=== PATIENT | male | born 1985 | race Caucasian/White ===

== ENCOUNTER 2016-10-12 14:00 | Emergency (ER) | payer OTHER ==
[~2016-10-12] VITALS: Ht 170.2 cm; Wt 68.2 kg
[2016-10-12 14:52] LABS: HEMATOCRIT 54.5 % (41-53); HEMOGLOBIN 17.9 g/dL (13.5-17.5); LYMPHOCYTES % (AUTO) 11.4 % (22.0-44.0); MEAN CORPUSCULAR HEMOGLOBIN 28.7 pg (26.0-34.0); MEAN CORPUSCULAR HGB CONC 32.8 G/dL (31.0-37.0); MEAN CORPUSCULAR VOLUME 88 fL (80-100); MONOCYTES # (AUTO) 1.2 K/uL (0.1-1.0); MONOCYTES % (AUTO) 13.5 % (2.0-9.0); NEUTROPHILS # (AUTO) 6.3 K/uL (1.8-7.7); NEUTROPHILS % (AUTO) 73.1 % (40.0-70.0); PLATELET COUNT (AUTO) 267 K/uL (150-450); RED BLOOD CELL COUNT(AUTO) 6.22 MIL/uL (4.50-5.90); RED CELL DISTRIBUTION WIDTH 13.7 % (11.5-14.5); WHITE BLOOD COUNT (AUTO) 8.6 K/uL (4.5-11.0)
[2016-10-12 15:24] LABS: ANION GAP 7 mmol/L (8-16); CALCIUM, TOTAL 9.9 mg/dL (8.8-10.5); CARBON DIOXIDE 31 mmol/L (22-29); CHLORIDE 100 mmol/L (98-107); CREATININE 1.15 mg/dL (0.60-1.30); GLOMERULAR FILTR. RATE CALC > 60 mL/min (>60); POTASSIUM 4.6 mmol/L (3.5-5.1); SODIUM SERUM 138 mmol/L (136-145); UREA NITROGEN, BLOOD 13 mg/dL (7-18)
[2016-10-12 15:31] LABS: ALANINE AMINOTRANSFERASE 42 U/L (12-78); ASPARTATE AMINOTRANSFERASE 29 U/L (15-37); BILIRUBIN,TOTAL 0.4 mg/dL (0.1-1.0); TOTAL PROTEIN, SERUM 8.7 g/dL (6.4-8.2)
[2016-10-12] MEDS ORDERED: SODIUM CHLORIDE 0.9% 1,000 ML IV ONE (16:30)
[2016-10-12 17:00] LABS: APPEARANCE,URINE CLEAR (CLEAR); GLUCOSE, URINE (UA) 500 mg/dL (NEGATIVE); KETONES,URINE NEGATIVE (NEGATIVE); LEUKOCYTE ESTERASE ,URINE NEGATIVE (NEGATIVE); OCCULT BLOOD,URINE NEGATIVE (NEGATIVE); PROTEIN,URINE NEGATIVE (NEGATIVE)
[2016-10-12 17:01] LABS: ADD UA MICROSCOPIC YES; RBC,URINE 0-2 /HPF (0-2)
[2016-10-12 17:02] LABS: WBC,URINE 0-2 /HPF (0-5)
[2016-10-12] MEDS ORDERED: SODIUM CHLORIDE 0.9% 100 ML ONE (17:43)
[2016-10-12] MEDS ORDERED: IOVERSOL 350 MG/ML 100 ML VIAL ONE (17:43)
[2016-10-12] MEDS ORDERED: KETOROLAC TROMETHAMINE 30 MG/ML VIAL IVP ONE (19:45)
[2016-10-12 19:56] VITALS: BP 159/89
== END 2016-10-12 19:57 | disposition home or self-care (01) ==
LOC: EMS 14:02
DX: R10.31 Right lower quadrant pain (principal); F17.210 Nicotine dependence, cigarettes, uncomplicated
CPT/HCPCS: 36415; 71260; 80053; 80307; 81001; 81003; 83690; 84484; 85025; 85379; 93005; 96361; 96374; 99285; J1885; J7030; J7050; Q9967

== ENCOUNTER 2017-03-25 13:16 | Emergency (ER) | payer OTHER ==
[~2017-03-25] VITALS: Ht 167.6 cm; Wt 71.5 kg
[2017-03-25] MEDS ORDERED: LISI10TA7 PO (13:27)
[2017-03-25] MEDS ORDERED: SODIUM CHLORIDE 0.9% 1,000 ML IV ONE (14:00)
[2017-03-25] MEDS ORDERED: LORazepam 2 MG/ML VIAL IVP ONE (14:00)
[2017-03-25 14:37] LABS: ANION GAP 5 mmol/L (8-16); CALCIUM, TOTAL 9.3 mg/dL (8.8-10.5); CARBON DIOXIDE 30 mmol/L (22-29); CHLORIDE 102 mmol/L (98-107); CREATININE 1.04 mg/dL (0.60-1.30); GLOMERULAR FILTR. RATE CALC > 60 mL/min (>60); POTASSIUM 3.1 mmol/L (3.5-5.1); SODIUM SERUM 137 mmol/L (136-145); UREA NITROGEN, BLOOD 14 mg/dL (7-18)
[2017-03-25 14:43] LABS: ALANINE AMINOTRANSFERASE 30 U/L (12-78); ALBUMIN 4.1 g/dL (3.4-5.0); ASPARTATE AMINOTRANSFERASE 18 U/L (15-37); BILIRUBIN,TOTAL 0.4 mg/dL (0.1-1.0); TOTAL PROTEIN, SERUM 7.7 g/dL (6.4-8.2)
[2017-03-25 14:46] LABS: BASOPHILS # (AUTO) 0.08 K/uL (0.00-0.20); BASOPHILS % (AUTO) 1.2 % (0.0-2.0); EOSINOPHILS # (AUTO) 0.03 K/uL (0.00-0.70); EOSINOPHILS % (AUTO) 0.45 % (1.0-6.0); HEMATOCRIT 45.6 % (41-53); HEMOGLOBIN 15.2 g/dL (13.5-17.5); LYMPHOCYTES # (AUTO) 1.6 K/uL (1.0-4.8); LYMPHOCYTES % (AUTO) 22.9 % (22.0-44.0); MEAN CORPUSCULAR HEMOGLOBIN 29.5 pg (26.0-34.0); MEAN CORPUSCULAR HGB CONC 33.2 G/dL (31.0-37.0); MEAN CORPUSCULAR VOLUME 89 fL (80-100); MONOCYTES # (AUTO) 0.7 K/uL (0.1-1.0); MONOCYTES % (AUTO) 9.9 % (2.0-9.0); NEUTROPHILS # (AUTO) 4.4 K/uL (1.8-7.7); NEUTROPHILS % (AUTO) 65.5 % (40.0-70.0); PLATELET COUNT (AUTO) 254 K/uL (150-450); RED BLOOD CELL COUNT(AUTO) 5.14 MIL/uL (4.50-5.90); RED CELL DISTRIBUTION WIDTH 13.2 % (11.5-14.5); WHITE BLOOD COUNT (AUTO) 6.8 K/uL (4.5-11.0)
[2017-03-25 16:47] VITALS: BP 123/78
== END 2017-03-25 17:20 | disposition home or self-care (01) ==
LOC: EMS 13:17
DX: F15.10 Other stimulant abuse, uncomplicated (principal); R00.0 Tachycardia, unspecified; F10.10 Alcohol abuse, uncomplicated; I10 Essential (primary) hypertension; F17.210 Nicotine dependence, cigarettes, uncomplicated; F12.90 Cannabis use, unspecified, uncomplicated; Y90.9 Presence of alcohol in blood, level not specified
CPT/HCPCS: 36415; 71010; 80053; 84484; 85025; 93005; 96361; 96374; 99285; J2060; J7030

== ENCOUNTER 2017-05-13 17:46 | Emergency (ER) | payer OTHER ==
[~2017-05-13] VITALS: Ht 162.6 cm; Wt 67.0 kg
[~2017-05-13 17:46] MED LIST: LISI10TA7 PO
[2017-05-13] MEDS ORDERED: SODIUM CHLORIDE 0.9% 1,000 ML IV ONE (20:15)
[2017-05-13] MEDS ORDERED: LORazepam 1 MG TABLET PO ONE (20:15)
[2017-05-13 20:16] LABS: BASOPHILS % (AUTO) 0.4 % (0.0-2.0); EOSINOPHILS % (AUTO) 0.7 % (1.0-6.0); HEMATOCRIT 50.3 % (41-53); HEMOGLOBIN 16.9 g/dL (13.5-17.5); LYMPHOCYTES # (AUTO) 2.7 K/uL (1.0-4.8); LYMPHOCYTES % (AUTO) 26.7 % (22.0-44.0); MEAN CORPUSCULAR HEMOGLOBIN 29.6 pg (26.0-34.0); MEAN CORPUSCULAR HGB CONC 33.7 G/dL (31.0-37.0); MEAN CORPUSCULAR VOLUME 88 fL (80-100); MONOCYTES # (AUTO) 1.3 K/uL (0.1-1.0); MONOCYTES % (AUTO) 12.7 % (2.0-9.0); NEUTROPHILS % (AUTO) 59.5 % (40.0-70.0); PLATELET COUNT (AUTO) 301 K/uL (150-450); RED BLOOD CELL COUNT(AUTO) 5.73 MIL/uL (4.50-5.90); WHITE BLOOD COUNT (AUTO) 10.1 K/uL (4.5-11.0)
[2017-05-13 21:28] LABS: CALCIUM, TOTAL 9.7 mg/dL (8.8-10.5); CREATININE 1.44 mg/dL (0.60-1.30); POTASSIUM 4.5 mmol/L (3.5-5.1)
[2017-05-13 21:36] LABS: ALBUMIN 4.7 g/dL (3.4-5.0); BILIRUBIN,TOTAL 0.7 mg/dL (0.1-1.0); TOTAL PROTEIN, SERUM 8.9 g/dL (6.4-8.2)
[2017-05-13 21:46] VITALS: BP 141/97
== END 2017-05-13 21:54 | disposition home or self-care (01) ==
LOC: EMS 17:47
DX: F15.10 Other stimulant abuse, uncomplicated (principal); F32.9 Major depressive disorder, single episode, unspecified; I10 Essential (primary) hypertension; F17.210 Nicotine dependence, cigarettes, uncomplicated; F12.90 Cannabis use, unspecified, uncomplicated
CPT/HCPCS: 36415; 80053; 80307; 84484; 85025; 93005; 99285; 99406; G0480; J7030

== ENCOUNTER 2017-05-25 01:38 | Emergency (ER) | payer OTHER ==
[~2017-05-25] VITALS: Ht 170.2 cm; Wt 68.0 kg
[2017-05-25] MEDS ORDERED: FURO20TA4 PO (01:49)
[2017-05-25] MEDS ORDERED: CARV3.1231 PO (01:49)
[2017-05-25] MEDS ORDERED: POTA8TAB4 PO (01:49)
[2017-05-25] MEDS ORDERED: LISI-618 PO (01:49)
[2017-05-25] MEDS ORDERED: SODIUM CHLORIDE 0.9% 2,000 ML IV ONE (02:00)
[2017-05-25 02:30] LABS: BASOPHILS # (AUTO) 0.01 K/uL (0.00-0.20); BASOPHILS % (AUTO) 0.1 % (0.0-2.0); EOSINOPHILS # (AUTO) 0.02 K/uL (0.00-0.70); EOSINOPHILS % (AUTO) 0.14 % (1.0-6.0); HEMATOCRIT 46.8 % (41-53); HEMOGLOBIN 15.7 g/dL (13.5-17.5); LYMPHOCYTES # (AUTO) 1.5 K/uL (1.0-4.8); LYMPHOCYTES % (AUTO) 12.6 % (22.0-44.0); MEAN CORPUSCULAR HEMOGLOBIN 29.5 pg (26.0-34.0); MEAN CORPUSCULAR HGB CONC 33.6 G/dL (31.0-37.0); MEAN CORPUSCULAR VOLUME 88 fL (80-100); MONOCYTES # (AUTO) 0.7 K/uL (0.1-1.0); MONOCYTES % (AUTO) 5.6 % (2.0-9.0); NEUTROPHILS # (AUTO) 9.9 K/uL (1.8-7.7); NEUTROPHILS % (AUTO) 81.5 % (40.0-70.0); PLATELET COUNT (AUTO) 293 K/uL (150-450); RED BLOOD CELL COUNT(AUTO) 5.32 MIL/uL (4.50-5.90); RED CELL DISTRIBUTION WIDTH 13.8 % (11.5-14.5); WHITE BLOOD COUNT (AUTO) 12.2 K/uL (4.5-11.0)
[2017-05-25 02:47] LABS: ANION GAP 6 mmol/L (8-16); CALCIUM, TOTAL 9.3 mg/dL (8.8-10.5); CARBON DIOXIDE 29 mmol/L (22-29); CHLORIDE 104 mmol/L (98-107); CREATININE 1.18 mg/dL (0.60-1.30); GLOMERULAR FILTR. RATE CALC > 60 mL/min (>60); POTASSIUM 4.8 mmol/L (3.5-5.1); SODIUM SERUM 139 mmol/L (136-145); UREA NITROGEN, BLOOD 13 mg/dL (7-18)
[2017-05-25 02:50] LABS: ALANINE AMINOTRANSFERASE 45 U/L (12-78); ALBUMIN 4.3 g/dL (3.4-5.0); ASPARTATE AMINOTRANSFERASE 22 U/L (15-37); BILIRUBIN,TOTAL 0.4 mg/dL (0.1-1.0); TOTAL PROTEIN, SERUM 8.3 g/dL (6.4-8.2)
[2017-05-25] MEDS ORDERED: LORazepam 2 MG TABLET PO ONE (04:00)
[2017-05-25 04:08] VITALS: BP 145/99
== END 2017-05-25 04:18 | disposition home or self-care (01) ==
LOC: EMS 01:39
DX: R07.89 Other chest pain (principal); F15.10 Other stimulant abuse, uncomplicated; I10 Essential (primary) hypertension; F17.210 Nicotine dependence, cigarettes, uncomplicated; F12.90 Cannabis use, unspecified, uncomplicated; F19.90 Other psychoactive substance use, unspecified, uncomplicated
CPT/HCPCS: 36415; 71010; 80053; 84484; 85025; 93005; 96360; 96361; 99285; 99406; G0480; J7030

== ENCOUNTER 2018-02-12 23:05 | Emergency (ER) | payer OTHER ==
[~2018-02-12] VITALS: Ht 162.6 cm; Wt 68.2 kg
[~2018-02-12 23:05] MED LIST changes: +CARV3.1231 PO; +FURO20TA4 PO; +LISI-618 PO; +POTA8TAB4 PO
[2018-02-12] MEDS ORDERED: LORazepam 2 MG/ML VIAL IM ONE (23:45)
[2018-02-13] MEDS ORDERED: PERTUSS(ACELL),DIPH,TET VAC/PF 0.5 ML VIAL IM ONE (00:30)
[2018-02-13] MEDS ORDERED: MUPIROCIN CALCIUM 2% 22 GM OINTMENT TP ONE (00:30)
[2018-02-13 01:00] VITALS: BP 146/86
== END 2018-02-13 01:15 | disposition home or self-care (01) ==
LOC: EMS 23:06
DX: S21.131A Puncture wound without foreign body of right front wall of thorax without penetration into thoracic cavity, initial encounter (principal); R00.0 Tachycardia, unspecified; I10 Essential (primary) hypertension; F12.90 Cannabis use, unspecified, uncomplicated; F17.210 Nicotine dependence, cigarettes, uncomplicated; Z02.89 Encounter for other administrative examinations; Y35.891A Legal intervention involving other specified means, law enforcement official injured, initial encounter; Y93.89 Activity, other specified; Y92.89 Other specified places as the place of occurrence of the external cause; Y99.8 Other external cause status
CPT/HCPCS: 90471; 90715; 93005; 96372; 99285; J2060

== ENCOUNTER 2019-03-31 01:23 | Inpatient (IN) | payer MEDICAID, OTHER ==
[~2019-03-31] VITALS: Ht 167.6 cm; Wt 65.3 kg
[~2019-03-31 01:23] MED LIST changes: -FURO20TA4 PO; -LISI10TA7 PO
[2019-03-31 01:47] LABS: EOSINOPHILS % (AUTO) 1.3 % (1.0-6.0); HEMATOCRIT 42.1 % (41-53); HEMOGLOBIN 13.6 g/dL (13.5-17.5); LYMPHOCYTES # (AUTO) 1.7 K/uL (1.0-4.8); LYMPHOCYTES % (AUTO) 27.6 % (22.0-44.0); MEAN CORPUSCULAR HEMOGLOBIN 28.2 pg (26.0-34.0); MEAN CORPUSCULAR HGB CONC 32.2 G/dL (31.0-37.0); MEAN CORPUSCULAR VOLUME 88 fL (80-100); MONOCYTES # (AUTO) 0.7 K/uL (0.1-1.0); MONOCYTES % (AUTO) 10.6 % (2.0-9.0); NEUTROPHILS # (AUTO) 3.7 K/uL (1.8-7.7); NEUTROPHILS % (AUTO) 59.5 % (40.0-70.0); PLATELET COUNT (AUTO) 294 K/uL (150-450); RED BLOOD CELL COUNT(AUTO) 4.81 MIL/uL (4.50-5.90); RED CELL DISTRIBUTION WIDTH 13.7 % (11.5-14.5)
[2019-03-31 01:55] LABS: ANION GAP 6 mmol/L (8-16); CALCIUM, TOTAL 8.9 mg/dL (8.8-10.5); CARBON DIOXIDE 29 mmol/L (22-29); CHLORIDE 107 mmol/L (98-107); CREATININE 0.96 mg/dL (0.60-1.30); GLOMERULAR FILTR. RATE CALC > 60 mL/min (>60); GLUCOSE,RANDOM 102 mg/dL (70-110); POTASSIUM 3.6 mmol/L (3.5-5.1); SODIUM SERUM 142 mmol/L (136-145); UREA NITROGEN, BLOOD 13 mg/dL (7-18)
[2019-03-31] MEDS ORDERED: CARVEDILOL 3.125 MG TABLET PO ONE (02:00)
[2019-03-31 02:01] LABS: ALANINE AMINOTRANSFERASE 29 U/L (12-78); ALBUMIN 3.5 g/dL (3.4-5.0); ALKALINE PHOSPHATASE 54 U/L (46-116); ASPARTATE AMINOTRANSFERASE 22 U/L (15-37); BILIRUBIN,TOTAL 0.5 mg/dL (0.1-1.0); TOTAL PROTEIN, SERUM 7.4 g/dL (6.4-8.2)
[2019-03-31 03:02] LABS: AMPHET/METH SCREEN,URINE POSITIVE (NEGATIVE); BARBITURATE SCREEN, URINE NEGATIVE (NEGATIVE); BENZODIAZEPINES SCREEN,URINE NEGATIVE (NEGATIVE); CANNABINOID SCREEN,URINE NEGATIVE (NEGATIVE); COCAINE SCREEN,URINE NEGATIVE (NEGATIVE); METHADONE SCREEN, URINE NEGATIVE (NEGATIVE); OPIATE SCREEN,URINE NEGATIVE (NEGATIVE)
[2019-03-31 03:05] LABS: PHENCYCLIDINE SCREEN,URINE NEGATIVE (NEGATIVE)
[2019-03-31] MEDS ORDERED: HALOPERIDOL 5 MG TABLET PO PRN (09:30)
[2019-03-31] MEDS ORDERED: ZOLPIDEM TARTRATE 10 MG TABLET PO PRN (09:30)
[2019-03-31] MEDS ORDERED: ONDANSETRON HCL 4 MG TABLET PO PRN (12:30)
[2019-03-31] MEDS ORDERED: IBUPROFEN 400 MG TABLET PO PRN (12:30)
[2019-03-31] MEDS ORDERED: CloNIDine HCL 0.1 MG TABLET PO PRN (12:30)
[2019-03-31] MEDS ORDERED: NICOTINE 14 MG/24 HOUR PATCH TD PRN (12:30)
[2019-03-31] MEDS ORDERED: MAGNESIUM HYDROXIDE SUSPENSION 30 ML UDCUP PO PRN (12:30)
[2019-03-31] MEDS ORDERED: ALBUTEROL SULFATE HFA 90 MCG/PUFF 8 GM INHALER IH PRN (12:30)
[2019-03-31] MEDS ORDERED: GuaiFENesin/D-METHORPHAN [SUGAR-FREE] 200-20MG/10 ML SYRUP UDCUP PO PRN (12:30)
[2019-03-31] MEDS ORDERED: DOCUSATE SODIUM 100 MG CAPSULE PO PRN (12:30)
[2019-03-31] MEDS ORDERED: PETROLATUM,WHITE 28 GM JELLY TP PRN (12:30)
[2019-03-31] MEDS ORDERED: ACETAMINOPHEN 325 MG TABLET PO PRN (12:30)
[2019-03-31] MEDS ORDERED: MAG HYDROX/AL HYDROX/SIMETH ES 30 ML SUSPENSION UDCUP PO PRN (12:30)
[2019-03-31] MEDS ORDERED: LOPERAMIDE HCL 2 MG CAPSULE PO PRN (12:30)
[2019-03-31] MEDS: LORazepam 2 MG TABLET PO PRN (13:44)
[2019-03-31 14:47] VITALS: BP 178/104
[2019-03-31 16:00] VITALS: BP 116/72
[2019-03-31] MEDS: CARVEDILOL 3.125 MG TABLET PO SCH (17:00)
[2019-04-01 05:41] VITALS: BP 126/88
[2019-04-01 08:00] VITALS: BP 140/90
[2019-04-01] MEDS: LISINOPRIL 20 MG TABLET PO SCH (08:30)
[2019-04-01] MEDS: CARVEDILOL 3.125 MG TABLET PO SCH ×2 (08:30→16:46)
[2019-04-01 09:09] LABS: CHOL/HDL RATIO 1.9 (4.2-7.3); FREE T4 (FREE THYROXINE) 1.11 ng/dL (0.76-1.46); THYROID STIMULATING HORMONE 0.67 uIU/mL (0.36-3.74)
[2019-04-01 16:34] VITALS: BP 139/88
[2019-04-01] MEDS: OLANZapine 5 MG TABLET PO SCH (16:46)
[2019-04-01] MEDS: LORazepam 2 MG TABLET PO PRN (16:46)
[2019-04-02 06:46] VITALS: BP 132/79
[2019-04-02] MEDS: LISINOPRIL 20 MG TABLET PO SCH (08:45)
[2019-04-02] MEDS: OLANZapine 5 MG TABLET PO SCH ×2 (08:45→16:49)
[2019-04-02] MEDS: CARVEDILOL 3.125 MG TABLET PO SCH ×2 (08:45→16:49)
[2019-04-02 09:00] VITALS: BP 139/87
[2019-04-02 16:12] VITALS: BP 127/86
[2019-04-02] MEDS: LORazepam 2 MG TABLET PO PRN (16:50)
[2019-04-03 06:05] VITALS: BP 122/78
[2019-04-03 08:33] VITALS: BP 113/70
[2019-04-03] MEDS: LISINOPRIL 20 MG TABLET PO SCH (09:02)
[2019-04-03] MEDS: OLANZapine 5 MG TABLET PO SCH ×2 (09:02→16:38)
[2019-04-03] MEDS: CARVEDILOL 3.125 MG TABLET PO SCH ×2 (09:02→16:38)
[2019-04-03 16:19] VITALS: BP 140/89
[2019-04-04 07:14] VITALS: BP 138/79
[2019-04-04 08:40] VITALS: BP 112/76
[2019-04-04] MEDS: LISINOPRIL 20 MG TABLET PO SCH (09:00)
[2019-04-04] MEDS: CARVEDILOL 3.125 MG TABLET PO SCH ×2 (09:00→16:38)
[2019-04-04] MEDS: OLANZapine 5 MG TABLET PO SCH ×2 (09:00→16:38)
[2019-04-04] MEDS ORDERED: BENZTROPINE MESYLATE 1 MG/ML 2 ML VIAL IM ONE (10:15)
[2019-04-04 16:13] VITALS: BP 142/83
[2019-04-04] MEDS: BENZTROPINE MESYLATE 2 MG TABLET PO SCH (16:38)
[2019-04-04] MEDS: LORazepam 2 MG TABLET PO PRN (16:38)
[2019-04-05 06:22] VITALS: BP 132/72
[2019-04-05 08:26] VITALS: BP 137/74
[2019-04-05] MEDS: OLANZapine 5 MG TABLET PO SCH ×2 (09:06→16:26)
[2019-04-05] MEDS: CARVEDILOL 3.125 MG TABLET PO SCH ×2 (09:06→16:26)
[2019-04-05] MEDS: BENZTROPINE MESYLATE 2 MG TABLET PO SCH ×2 (09:07→16:26)
[2019-04-05] MEDS: LISINOPRIL 20 MG TABLET PO SCH (09:07)
[2019-04-05 16:00] VITALS: BP 136/76
[2019-04-05] MEDS: LORazepam 2 MG TABLET PO PRN (16:27)
[2019-04-06 00:53] VITALS: BP 133/76
[2019-04-06 08:09] VITALS: BP 130/73
[2019-04-06] MEDS: BENZTROPINE MESYLATE 2 MG TABLET PO SCH ×2 (08:37→16:25)
[2019-04-06] MEDS: CARVEDILOL 3.125 MG TABLET PO SCH ×2 (08:37→16:25)
[2019-04-06] MEDS: OLANZapine 5 MG TABLET PO SCH ×2 (08:37→16:25)
[2019-04-06] MEDS: LISINOPRIL 20 MG TABLET PO SCH (08:37)
[2019-04-06] MEDS: BusPIRone HCL 10 MG TABLET PO SCH ×2 (10:08→16:25)
[2019-04-06] MEDS ORDERED: BUSP10TA23 PO (16:00)
[2019-04-06] MEDS ORDERED: OLAN5TAB2 PO (16:00)
[2019-04-06] MEDS ORDERED: BENZ2TAB10 PO (16:00)
[2019-04-06 16:35] VITALS: BP 118/71
[2019-04-07 01:06] VITALS: BP 136/79
== END 2019-04-07 07:25 | disposition home or self-care (01) | DRG 776 ==
LOC: EMS 01:26 → B3A 09:41
PROVIDERS: ADMIT Psychiatry & Neurology Psychiatry; ATTEND Psychiatry & Neurology Psychiatry
DX: F15.159 Other stimulant abuse with stimulant-induced psychotic disorder, unspecified (principal); F12.90 Cannabis use, unspecified, uncomplicated; F17.210 Nicotine dependence, cigarettes, uncomplicated; F32.9 Major depressive disorder, single episode, unspecified; I10 Essential (primary) hypertension; Z71.51 Drug abuse counseling and surveillance of drug abuser; Z71.6 Tobacco abuse counseling
CPT/HCPCS: 83036; 84439; 84443; G0480; J0515

== ENCOUNTER 2019-05-30 23:10 | Emergency (ER) | payer MEDICAID ==
[~2019-05-30] VITALS: Ht 162.6 cm; Wt 69.1 kg
[~2019-05-30 23:10] MED LIST changes: +BENZ2TAB10 PO; +BUSP10TA23 PO; +OLAN5TAB2 PO; -POTA8TAB4 PO
[2019-05-31] MEDS ORDERED: DiphenhydrAMINE HCL 25 MG CAPSULE PO ONE (00:30)
[2019-05-31 00:32] VITALS: BP 127/75
== END 2019-05-31 01:09 | disposition home or self-care (01) ==
LOC: EMS 23:12
DX: G47.00 Insomnia, unspecified (principal); F15.10 Other stimulant abuse, uncomplicated; F19.10 Other psychoactive substance abuse, uncomplicated; F17.210 Nicotine dependence, cigarettes, uncomplicated; F32.9 Major depressive disorder, single episode, unspecified; I10 Essential (primary) hypertension; F11.90 Opioid use, unspecified, uncomplicated; F12.90 Cannabis use, unspecified, uncomplicated; Z79.899 Other long term (current) drug therapy

== ENCOUNTER 2019-06-10 15:30 | Emergency (ER) | payer OTHER ==
[~2019-06-10] VITALS: Ht 162.6 cm; Wt 66.8 kg
[~2019-06-10 15:30] MED LIST changes: -BUSP10TA23 PO; -CARV3.1231 PO; -LISI-618 PO
[2019-06-10 16:55] LABS: EOSINOPHILS % (AUTO) 0.7 % (1.0-6.0); HEMATOCRIT 45.6 % (41-53); HEMOGLOBIN 15.3 g/dL (13.5-17.5); LYMPHOCYTES # (AUTO) 1.7 K/uL (1.0-4.8); LYMPHOCYTES % (AUTO) 23.6 % (22.0-44.0); MEAN CORPUSCULAR HEMOGLOBIN 29.3 pg (26.0-34.0); MEAN CORPUSCULAR HGB CONC 33.6 G/dL (31.0-37.0); MEAN CORPUSCULAR VOLUME 87 fL (80-100); MONOCYTES # (AUTO) 0.5 K/uL (0.1-1.0); MONOCYTES % (AUTO) 7.1 % (2.0-9.0); NEUTROPHILS # (AUTO) 4.8 K/uL (1.8-7.7); NEUTROPHILS % (AUTO) 67.6 % (40.0-70.0); PLATELET COUNT (AUTO) 326 K/uL (150-450); RED BLOOD CELL COUNT(AUTO) 5.22 MIL/uL (4.50-5.90); RED CELL DISTRIBUTION WIDTH 14.8 % (11.5-14.5)
[2019-06-10] MEDS ORDERED: SODIUM CHLORIDE 0.9% 100 ML ONE (16:58)
[2019-06-10] MEDS ORDERED: IOVERSOL 320 MG/ML 100 ML VIAL ONE (16:58)
[2019-06-10 17:12] LABS: PROTHROMBIN TIME 10.2 SEC (9.4-11.6)
[2019-06-10 17:21] LABS: ANION GAP 10 mmol/L (8-16); CALCIUM, TOTAL 9.5 mg/dL (8.8-10.5); CARBON DIOXIDE 25 mmol/L (22-29); CHLORIDE 101 mmol/L (98-107); CREATININE 0.91 mg/dL (0.60-1.30); GLOMERULAR FILTR. RATE CALC > 60 mL/min (>60); GLUCOSE,RANDOM 115 mg/dL (70-110); POTASSIUM 4.1 mmol/L (3.5-5.1); SODIUM SERUM 136 mmol/L (136-145); UREA NITROGEN, BLOOD 18 mg/dL (7-18)
[2019-06-10 17:26] LABS: B-TYPE NATRIURETIC PEPTIDE < 5 pg/mL (0-100)
[2019-06-10 17:28] LABS: ALANINE AMINOTRANSFERASE 18 U/L (12-78); ALBUMIN 4.1 g/dL (3.4-5.0); ALKALINE PHOSPHATASE 48 U/L (46-116); ASPARTATE AMINOTRANSFERASE 13 U/L (15-37); BILIRUBIN,TOTAL 0.2 mg/dL (0.1-1.0); CREATINE KINASE, TOTAL ONLY 44 U/L (39-308); TOTAL PROTEIN, SERUM 7.9 g/dL (6.4-8.2)
[2019-06-10 19:50] VITALS: BP 121/74
== END 2019-06-10 19:51 | disposition home or self-care (01) ==
LOC: EMS 15:31
DX: N20.0 Calculus of kidney (principal); F32.9 Major depressive disorder, single episode, unspecified; I10 Essential (primary) hypertension; F17.210 Nicotine dependence, cigarettes, uncomplicated; F12.90 Cannabis use, unspecified, uncomplicated; F19.90 Other psychoactive substance use, unspecified, uncomplicated; F11.90 Opioid use, unspecified, uncomplicated; Z91.018 Allergy to other foods; Z88.8 Allergy status to other drugs, medicaments and biological substances
CPT/HCPCS: 36415; 70450; 71045; 74177; 80053; 82550; 83880; 84484; 85025; 85610; 85730; 93005; 99285; J7050; Q9967

== ENCOUNTER 2019-06-15 23:01 | Emergency (ER) | payer OTHER ==
[~2019-06-15] VITALS: Ht 165.1 cm; Wt 65.5 kg
[2019-06-16 00:32] LABS: AMPHET/METH SCREEN,URINE POSITIVE (NEGATIVE); BARBITURATE SCREEN, URINE NEGATIVE (NEGATIVE); BENZODIAZEPINES SCREEN,URINE NEGATIVE (NEGATIVE); CANNABINOID SCREEN,URINE POSITIVE (NEGATIVE); COCAINE SCREEN,URINE NEGATIVE (NEGATIVE); METHADONE SCREEN, URINE NEGATIVE (NEGATIVE); OPIATE SCREEN,URINE NEGATIVE (NEGATIVE); PHENCYCLIDINE SCREEN,URINE NEGATIVE (NEGATIVE)
[2019-06-16 01:34] LABS: BASOPHILS % (AUTO) 0.5 % (0.0-2.0); EOSINOPHILS % (AUTO) 0 % (1.0-6.0); HEMATOCRIT 41.4 % (41-53); HEMOGLOBIN 13.9 g/dL (13.5-17.5); LYMPHOCYTES # (AUTO) 1.8 K/uL (1.0-4.8); LYMPHOCYTES % (AUTO) 15.6 % (22.0-44.0); MEAN CORPUSCULAR HEMOGLOBIN 28.9 pg (26.0-34.0); MEAN CORPUSCULAR HGB CONC 33.6 G/dL (31.0-37.0); MEAN CORPUSCULAR VOLUME 86 fL (80-100); MONOCYTES % (AUTO) 8.7 % (2.0-9.0); NEUTROPHILS # (AUTO) 8.6 K/uL (1.8-7.7); NEUTROPHILS % (AUTO) 75.2 % (40.0-70.0); PLATELET COUNT (AUTO) 291 K/uL (150-450); RED BLOOD CELL COUNT(AUTO) 4.82 MIL/uL (4.50-5.90); RED CELL DISTRIBUTION WIDTH 14.4 % (11.5-14.5)
[2019-06-16 01:43] LABS: ANION GAP 12 mmol/L (8-16); CALCIUM, TOTAL 9.4 mg/dL (8.8-10.5); CARBON DIOXIDE 23 mmol/L (22-29); CHLORIDE 101 mmol/L (98-107); CREATININE 1.37 mg/dL (0.60-1.30); GLOMERULAR FILTR. RATE CALC 59 mL/min (>60); GLUCOSE,RANDOM 105 mg/dL (70-110); POTASSIUM 3.6 mmol/L (3.5-5.1); SODIUM SERUM 136 mmol/L (136-145); UREA NITROGEN, BLOOD 13 mg/dL (7-18)
[2019-06-16 01:48] LABS: ALANINE AMINOTRANSFERASE 19 U/L (12-78); ALBUMIN 4.3 g/dL (3.4-5.0); ALKALINE PHOSPHATASE 52 U/L (46-116); ASPARTATE AMINOTRANSFERASE 17 U/L (15-37); BILIRUBIN,TOTAL 0.4 mg/dL (0.1-1.0); TOTAL PROTEIN, SERUM 7.6 g/dL (6.4-8.2)
[2019-06-16] MEDS ORDERED: SODIUM CHLORIDE 0.9% 1,000 ML IV ONE (02:15)
[2019-06-16 03:13] LABS: CREATINE KINASE, TOTAL ONLY 193 U/L (39-308)
[2019-06-16] MEDS ORDERED: DiphenhydrAMINE HCL 25 MG CAPSULE PO ONE (04:00)
[2019-06-16 05:30] VITALS: BP 153/98
== END 2019-06-16 06:25 | disposition home or self-care (01) ==
LOC: EMS 23:02
DX: F15.129 Other stimulant abuse with intoxication, unspecified (principal); F11.90 Opioid use, unspecified, uncomplicated; F12.90 Cannabis use, unspecified, uncomplicated; F17.210 Nicotine dependence, cigarettes, uncomplicated; Z91.018 Allergy to other foods; F32.9 Major depressive disorder, single episode, unspecified; I10 Essential (primary) hypertension; Z79.899 Other long term (current) drug therapy; Z88.8 Allergy status to other drugs, medicaments and biological substances
CPT/HCPCS: 36415; 80053; 80307; 82550; 85025; 93005; 99285; G0480; J7030

== ENCOUNTER 2019-10-24 00:48 | Emergency (ER) | payer OTHER ==
[~2019-10-24] VITALS: Ht 162.6 cm; Wt 63.6 kg
[~2019-10-24 00:48] MED LIST changes: +LISI-661 PO
[2019-10-24] MEDS ORDERED: BENA5TAB26 PO (01:10)
[2019-10-24] MEDS ORDERED: BUSP5TAB20 PO (01:10)
[2019-10-24] MEDS ORDERED: DIAZEPAM 5 MG/ML 2 ML SYRINGE IM ONE (02:15)
[2019-10-24 02:22] LABS: BASOPHILS % (AUTO) 0.8 % (0.0-2.0); EOSINOPHILS % (AUTO) 0.5 % (1.0-6.0); HEMOGLOBIN 13.7 g/dL (13.5-17.5); LYMPHOCYTES # (AUTO) 1.6 K/uL (1.0-4.8); LYMPHOCYTES % (AUTO) 26.8 % (22.0-44.0); MEAN CORPUSCULAR HEMOGLOBIN 29.1 pg (26.0-34.0); MEAN CORPUSCULAR HGB CONC 33.3 G/dL (31.0-37.0); MEAN CORPUSCULAR VOLUME 87 fL (80-100); MONOCYTES # (AUTO) 0.5 K/uL (0.1-1.0); MONOCYTES % (AUTO) 9.2 % (2.0-9.0); NEUTROPHILS # (AUTO) 3.7 K/uL (1.8-7.7); NEUTROPHILS % (AUTO) 62.7 % (40.0-70.0); PLATELET COUNT (AUTO) 295 K/uL (150-450); RED CELL DISTRIBUTION WIDTH 12.9 % (11.5-14.5)
[2019-10-24 02:30] LABS: ANION GAP 8 mmol/L (8-16); CALCIUM, TOTAL 9.3 mg/dL (8.8-10.5); CARBON DIOXIDE 28 mmol/L (22-29); CHLORIDE 102 mmol/L (98-107); CREATININE 1.12 mg/dL (0.60-1.30); GLOMERULAR FILTR. RATE CALC > 60 mL/min (>60); GLUCOSE,RANDOM 116 mg/dL (70-110); POTASSIUM 3.7 mmol/L (3.5-5.1); SODIUM SERUM 138 mmol/L (136-145); UREA NITROGEN, BLOOD 16 mg/dL (7-18)
[2019-10-24 02:36] LABS: ALANINE AMINOTRANSFERASE 34 U/L (12-78); ALKALINE PHOSPHATASE 47 U/L (46-116); ASPARTATE AMINOTRANSFERASE 24 U/L (15-37); BILIRUBIN,TOTAL 0.3 mg/dL (0.1-1.0); TOTAL PROTEIN, SERUM 7.6 g/dL (6.4-8.2)
[2019-10-24 03:12] LABS: AMPHET/METH SCREEN,URINE POSITIVE (NEGATIVE); BARBITURATE SCREEN, URINE NEGATIVE (NEGATIVE); BENZODIAZEPINES SCREEN,URINE NEGATIVE (NEGATIVE); CANNABINOID SCREEN,URINE NEGATIVE (NEGATIVE); COCAINE SCREEN,URINE NEGATIVE (NEGATIVE); METHADONE SCREEN, URINE NEGATIVE (NEGATIVE); OPIATE SCREEN,URINE NEGATIVE (NEGATIVE); PHENCYCLIDINE SCREEN,URINE NEGATIVE (NEGATIVE)
[2019-10-24 03:36] VITALS: BP 132/77
== END 2019-10-24 04:12 | disposition home or self-care (01) ==
LOC: EMS 00:48
DX: F20.0 Paranoid schizophrenia (principal); F41.9 Anxiety disorder, unspecified; G47.00 Insomnia, unspecified; F15.10 Other stimulant abuse, uncomplicated; R07.89 Other chest pain; F32.9 Major depressive disorder, single episode, unspecified; I10 Essential (primary) hypertension; F12.90 Cannabis use, unspecified, uncomplicated; Z87.891 Personal history of nicotine dependence; Z88.8 Allergy status to other drugs, medicaments and biological substances; Z91.018 Allergy to other foods; Z79.899 Other long term (current) drug therapy
CPT/HCPCS: 36415; 80053; 80307; 85025; 93005; 96372; 99284; G0480; J1885

== ENCOUNTER 2020-12-26 01:48 | Inpatient (IN) | payer MEDICAID, OTHER ==
[~2020-12-26] VITALS: Ht 167.6 cm; Wt 58.8 kg
[~2020-12-26 01:48] MED LIST changes: +BENA5TAB26 PO; +BUSP5TAB20 PO; -LISI-661 PO; -OLAN5TAB2 PO
[2020-12-26 02:40] LABS: BASOPHILS % (AUTO) 1.4 % (0.0-2.0); EOSINOPHILS % (AUTO) 0.8 % (1.0-6.0); HEMATOCRIT 46.4 % (41-53); HEMOGLOBIN 15.4 g/dL (13.5-17.5); LYMPHOCYTES # (AUTO) 1.1 K/uL (1.0-4.8); LYMPHOCYTES % (AUTO) 19.6 % (22.0-44.0); MEAN CORPUSCULAR HEMOGLOBIN 29.3 pg (26.0-34.0); MEAN CORPUSCULAR HGB CONC 33.1 G/dL (31.0-37.0); MEAN CORPUSCULAR VOLUME 88 fL (80-100); MONOCYTES # (AUTO) 0.6 K/uL (0.1-1.0); MONOCYTES % (AUTO) 10.3 % (2.0-9.0); NEUTROPHILS # (AUTO) 3.7 K/uL (1.8-7.7); NEUTROPHILS % (AUTO) 67.9 % (40.0-70.0); PLATELET COUNT (AUTO) 295 K/uL (150-450); RED BLOOD CELL COUNT(AUTO) 5.26 MIL/uL (4.50-5.90); RED CELL DISTRIBUTION WIDTH 13.4 % (11.5-14.5)
[2020-12-26 02:49] LABS: ANION GAP 7 mmol/L (8-16); CALCIUM, TOTAL 9.4 mg/dL (8.8-10.5); CARBON DIOXIDE 30 mmol/L (22-29); CHLORIDE 104 mmol/L (98-107); CREATININE 1.03 mg/dL (0.60-1.30); GLOMERULAR FILTR. RATE CALC > 60 mL/min (>60); GLUCOSE,RANDOM 81 mg/dL (70-110); POTASSIUM 4.1 mmol/L (3.5-5.1); SODIUM SERUM 141 mmol/L (136-145); UREA NITROGEN, BLOOD 19 mg/dL (7-18)
[2020-12-26 02:55] LABS: ALANINE AMINOTRANSFERASE 31 U/L (12-78); ALBUMIN 4.6 g/dL (3.4-5.0); ALKALINE PHOSPHATASE 54 U/L (46-116); ASPARTATE AMINOTRANSFERASE 21 U/L (15-37); BILIRUBIN,TOTAL 0.5 mg/dL (0.1-1.0); TOTAL PROTEIN, SERUM 8.6 g/dL (6.4-8.2)
[2020-12-26 03:14] LABS: COVID AG,FIA SOURCE NASOPHARYNGEAL
[2020-12-26] MEDS ORDERED: QUEtiapine FUMARATE 100 MG TABLET PO PRN (03:45)
[2020-12-26] MEDS ORDERED: ZOLPIDEM TARTRATE 10 MG TABLET PO PRN (03:45)
[2020-12-26 05:28] VITALS: BP 151/107
[2020-12-26 07:47] VITALS: BP 144/94
[2020-12-26] MEDS ORDERED: ONDANSETRON HCL 4 MG TABLET PO PRN (08:00)
[2020-12-26] MEDS ORDERED: ALBUTEROL SULFATE HFA 90 MCG/PUFF 8 GM INHALER IH PRN (08:00)
[2020-12-26] MEDS ORDERED: LOPERAMIDE HCL 2 MG CAPSULE PO PRN (08:00)
[2020-12-26] MEDS ORDERED: MAG HYDROX/AL HYDROX/SIMETH ES 30 ML SUSPENSION UDCUP PO PRN (08:00)
[2020-12-26] MEDS ORDERED: IBUPROFEN 400 MG TABLET PO PRN (08:00)
[2020-12-26] MEDS ORDERED: CloNIDine HCL 0.1 MG TABLET PO PRN (08:00)
[2020-12-26] MEDS ORDERED: ACETAMINOPHEN 325 MG TABLET PO PRN (08:00)
[2020-12-26] MEDS ORDERED: PETROLATUM,WHITE 28 GM JELLY TP PRN (08:00)
[2020-12-26] MEDS ORDERED: GuaiFENesin/D-METHORPHAN [SUGAR-FREE] 200-20MG/10 ML SYRUP UDCUP PO PRN (08:00)
[2020-12-26] MEDS ORDERED: MAGNESIUM HYDROXIDE SUSPENSION 30 ML UDCUP PO PRN (08:00)
[2020-12-26] MEDS ORDERED: DOCUSATE SODIUM 100 MG CAPSULE PO PRN (08:00)
[2020-12-26] MEDS ORDERED: NICOTINE 14 MG/24 HOUR PATCH TD PRN (08:00)
[2020-12-26 11:47] VITALS: BP 139/72
[2020-12-26 16:50] VITALS: BP 137/90
[2020-12-26] MEDS: RisperiDONE 2 MG TABLET PO SCH (20:22)
[2020-12-27] MEDS ORDERED: PNEUMOCOCCAL VACCINE POLYVALENT 0.5 ML VIAL [PPSV23] IM. ONE (01:30)
[2020-12-27 07:10] LABS: CHOL/HDL RATIO 1.9 (4.2-7.3)
[2020-12-27 07:14] LABS: PHOSPHORUS 4.4 mg/dL (2.5-4.9)
[2020-12-27] MEDS: MULTIVITAMINS WITH MINERALS, THERAPEUTIC TABLET PO SCH (08:40)
[2020-12-27 16:05] VITALS: BP 128/82
[2020-12-27 16:06] VITALS: BP 128/82
[2020-12-27] MEDS: RisperiDONE 2 MG TABLET PO SCH (20:12)
[2020-12-28] MEDS: MULTIVITAMINS WITH MINERALS, THERAPEUTIC TABLET PO SCH (08:12)
[2020-12-28 16:00] VITALS: BP 128/75
[2020-12-28] MEDS: BENZTROPINE MESYLATE 1 MG TABLET PO SCH (20:49)
[2020-12-28] MEDS: RisperiDONE 2 MG TABLET PO SCH (20:49)
[2020-12-29] MEDS: MULTIVITAMINS WITH MINERALS, THERAPEUTIC TABLET PO SCH (08:09)
[2020-12-29 08:34] VITALS: BP 131/94
[2020-12-29 16:00] VITALS: BP 110/88
[2020-12-29] MEDS: RisperiDONE 2 MG TABLET PO SCH (20:16)
[2020-12-29] MEDS: BENZTROPINE MESYLATE 1 MG TABLET PO SCH (20:16)
[2020-12-30] MEDS: MULTIVITAMINS WITH MINERALS, THERAPEUTIC TABLET PO SCH (08:05)
[2020-12-30 09:26] VITALS: BP 115/70
[2020-12-30 16:42] VITALS: BP 118/70
[2020-12-30] MEDS: BENZTROPINE MESYLATE 1 MG TABLET PO SCH (20:36)
[2020-12-30] MEDS: RisperiDONE 2 MG TABLET PO SCH (20:36)
[2020-12-31] MEDS: MULTIVITAMINS WITH MINERALS, THERAPEUTIC TABLET PO SCH (08:03)
[2020-12-31 09:13] VITALS: BP 141/81
[2020-12-31] MEDS: RisperiDONE 2 MG TABLET PO SCH ×2 (09:32→20:38)
[2020-12-31] MEDS: BENZTROPINE MESYLATE 1 MG TABLET PO SCH ×2 (09:32→20:38)
[2020-12-31 16:00] VITALS: BP 118/77
[2021-01-01] MEDS: RisperiDONE 2 MG TABLET PO SCH ×2 (08:25→20:30)
[2021-01-01] MEDS: MULTIVITAMINS WITH MINERALS, THERAPEUTIC TABLET PO SCH (08:25)
[2021-01-01] MEDS: BENZTROPINE MESYLATE 1 MG TABLET PO SCH ×2 (08:25→20:30)
[2021-01-01 09:39] VITALS: BP 123/77
[2021-01-01 15:06] LABS: COVID AG,FIA SOURCE NASOPHARYNGEAL
[2021-01-02 08:16] VITALS: BP 106/65
[2021-01-02] MEDS: MULTIVITAMINS WITH MINERALS, THERAPEUTIC TABLET PO SCH (08:28)
[2021-01-02] MEDS: BENZTROPINE MESYLATE 1 MG TABLET PO SCH ×2 (08:28→20:38)
[2021-01-02] MEDS: RisperiDONE 2 MG TABLET PO SCH ×2 (08:28→20:38)
[2021-01-02 16:21] VITALS: BP 110/66
[2021-01-03 08:00] VITALS: BP 125/52
[2021-01-03] MEDS: RisperiDONE 2 MG TABLET PO SCH ×2 (09:44→20:58)
[2021-01-03] MEDS: BENZTROPINE MESYLATE 1 MG TABLET PO SCH ×2 (09:44→20:58)
[2021-01-03] MEDS: MULTIVITAMINS WITH MINERALS, THERAPEUTIC TABLET PO SCH (09:44)
[2021-01-03 16:48] VITALS: BP 135/75
[2021-01-04] MEDS: BENZTROPINE MESYLATE 1 MG TABLET PO SCH ×2 (10:18→20:57)
[2021-01-04] MEDS: RisperiDONE 2 MG TABLET PO SCH ×2 (10:18→20:57)
[2021-01-04] MEDS: MULTIVITAMINS WITH MINERALS, THERAPEUTIC TABLET PO SCH (10:18)
[2021-01-04 16:00] VITALS: BP 118/70
[2021-01-05] MEDS: BENZTROPINE MESYLATE 1 MG TABLET PO SCH ×2 (08:38→20:44)
[2021-01-05] MEDS: RisperiDONE 2 MG TABLET PO SCH ×2 (08:38→20:44)
[2021-01-05] MEDS: MULTIVITAMINS WITH MINERALS, THERAPEUTIC TABLET PO SCH (08:38)
[2021-01-05 11:02] VITALS: BP 114/75
[2021-01-05 16:09] VITALS: BP 117/69
[2021-01-06 08:00] VITALS: BP 112/69
[2021-01-06] MEDS: RisperiDONE 2 MG TABLET PO SCH ×2 (09:11→20:39)
[2021-01-06] MEDS: MULTIVITAMINS WITH MINERALS, THERAPEUTIC TABLET PO SCH (09:11)
[2021-01-06] MEDS: BENZTROPINE MESYLATE 1 MG TABLET PO SCH ×2 (09:11→20:39)
[2021-01-06 16:14] VITALS: BP 105/62
[2021-01-07 08:00] VITALS: BP 108/68
[2021-01-07 08:07] VITALS: BP 108/68
[2021-01-07] MEDS: MULTIVITAMINS WITH MINERALS, THERAPEUTIC TABLET PO SCH (08:36)
[2021-01-07] MEDS: RisperiDONE 2 MG TABLET PO SCH ×2 (08:36→22:06)
[2021-01-07] MEDS: BENZTROPINE MESYLATE 1 MG TABLET PO SCH ×2 (08:36→22:07)
[2021-01-07 16:24] VITALS: BP 11/70
[2021-01-08 08:00] VITALS: BP 126/74
[2021-01-08] MEDS: RisperiDONE 2 MG TABLET PO SCH (10:15)
[2021-01-08] MEDS: MULTIVITAMINS WITH MINERALS, THERAPEUTIC TABLET PO SCH (10:15)
[2021-01-08] MEDS: BENZTROPINE MESYLATE 1 MG TABLET PO SCH (10:15)
[2021-01-08 11:04] LABS: COVID AG,FIA SOURCE NASOPHARYNGEAL
[2021-01-08] MEDS ORDERED: RISP2TAB45 PO (13:16)
== END 2021-01-08 14:00 | disposition home or self-care (01) | DRG 750 ==
LOC: EMS 01:51 → 3EI 04:00
DX: F20.0 Paranoid schizophrenia (principal); E46 Unspecified protein-calorie malnutrition; F15.10 Other stimulant abuse, uncomplicated; I10 Essential (primary) hypertension; K59.00 Constipation, unspecified; Z87.442 Personal history of urinary calculi; Z87.891 Personal history of nicotine dependence; F12.90 Cannabis use, unspecified, uncomplicated; F32.9 Major depressive disorder, single episode, unspecified; G47.00 Insomnia, unspecified; Z20.822 Contact with and (suspected) exposure to COVID-19; Z68.20 Body mass index [BMI] 20.0-20.9, adult
CPT/HCPCS: 80053; 80061; 83735; 84100; 85025; 87426; 99285; G0480